=== PATIENT | male | born 1980 | race Caucasian/White ===

== ENCOUNTER 2024-11-05 13:19 | Emergency (ER) | payer OTHER ==
[~2024-11-05] VITALS: Ht 185.4 cm; Wt 85.3 kg
[2024-11-05] MEDS ORDERED: ondansetron HCL 4 MG/2 ML VIAL IV ONE (14:15)
[2024-11-05] MEDS ORDERED: HYDROmorphone HCL 1 MG/ML SYR IV ONE (14:15)
[2024-11-05 14:57] LABS: BASOPHILS 0.4 % (0.2-1.2); EOSINOPHILS 3.3 % (0.8-7.0); HEMATOCRIT 43.7 % (40.1-51.0); HEMOGLOBIN 14.7 g/dL (13.7-17.5); LYMPHOCYTES 50.8 % (21.8-53.1); MCH 29.1 PG (25.7-32.2); MCHC 33.6 g/dL (32.3-36.5); MCV 86.5 fL (79.0-92.2); NEUTROPHILS 35.3 % (34.0-67.9); PLATELET COUNT 263 K/uL (163-337); RBC 5.05 M/uL (4.63-6.08)
[2024-11-05 15:17] LABS: ALBUMIN 3.9 g/dL (3.4-5.0); ALBUMIN/GLOBULIN RATIO 1.3 (1.1-2.4); ANION GAP 10.8 (7-21); BILIRUBIN, TOTAL 0.7 mg/dL (0.2-1.0); BUN/CREATININE RATIO 14.58 (6.0-28.6); CREATININE, SERUM 0.96 mg/dL (0.70-1.30); POTASSIUM 3.8 mmol/L (3.5-5.1); PROTEIN, TOTAL 6.9 g/dL (6.4-8.2)
[2024-11-05] MEDS ORDERED: PERCOCET 5-3251 EACH PO (16:38)
[2024-11-05] MEDS ORDERED: OXYCODONE/APAP 5/325 TAB PO ONE (16:45)
[2024-11-05 16:46] VITALS: BP 108/73
== END 2024-11-05 16:54 | disposition home or self-care (01) ==
LOC: ED 13:19
PROVIDERS: Emergency Medicine
DX: M54.50 Low back pain, unspecified (principal); Z88.0 Allergy status to penicillin; Z88.8 Allergy status to other drugs, medicaments and biological substances
CPT/HCPCS: 36415; 72131; 80053; 85025; 96374; 96375; 99284-25; J1171; J2405

== ENCOUNTER 2024-11-18 12:07 | Emergency (ER) | payer OTHER ==
[~2024-11-18] VITALS: Ht 185.4 cm; Wt 82.4 kg
[~2024-11-18 12:07] MED LIST: PERCOCET 5-3251 EACH PO
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
[2024-11-18 12:57] LABS: BASOPHILS 0.4 % (0.2-1.2); EOSINOPHILS 1.6 % (0.8-7.0); LYMPHOCYTES 49.7 % (21.8-53.1); MCH 28.7 PG (25.7-32.2); MCHC 33.7 g/dL (32.3-36.5); MCV 85.2 fL (79.0-92.2); MONOCYTES 9.8 % (5.3-12.2); NEUTROPHILS 38.3 % (34.0-67.9); RBC 5.22 M/uL (4.63-6.08)
[2024-11-18 13:05] LABS: BLOOD/HGB, URINE NEGATIVE (Negative); KETONE, URINE NEGATIVE (Negative); LEUK ESTERASE, URINE NEGATIVE (negative); NITRITE, URINE NEGATIVE (negative)
[2024-11-18 13:07] LABS: ALT (SGPT) 19.0 U/L (14-59); AST (SGOT) 21.0 U/L (15-37); GLOMERULAR FILTRATION RATE,EST 96.0 mL/min (>60); PROTEIN, TOTAL 7.5 g/dL (6.4-8.2); UREA NITROGEN 13.0 mg/dL (7-18)
[2024-11-18] MEDS ORDERED: KETOROLAC TROMETHAMINE 15 MG/ML VIAL IV ONE (14:30)
[2024-11-18 14:43] VITALS: BP 114/76
== END 2024-11-18 14:20 | disposition home or self-care (01) ==
LOC: ED 12:07
PROVIDERS: Emergency Medicine
DX: M54.50 Low back pain, unspecified (principal); R10.31 Right lower quadrant pain
CPT/HCPCS: 36415; 74177; 80053; 81003; 83690; 85025; 99284-25; Q9967